=== PATIENT | male | born 1985 | race Caucasian/White ===

== ENCOUNTER 2016-11-13 05:07 | Emergency (ER) | payer SELFPAY ==
[~2016-11-13] VITALS: Ht 170.2 cm; Wt 77.5 kg
[~2016-11-13 05:07] MED LIST: ACET325T33 PO; ERYT1OIN6 LEFT EYE; FAMO-18 PO; LORA-441 PO; ONDA4TAB35 PO
[2016-11-13 05:13] VITALS: Ht 170.2 cm; Wt 77.5 kg
--- NOTE | 2016-11-13 06:42 | ERD ---
ER Documentation Chief Complaint Date/Time DATE: 11/13/16 TIME: 06:38 Chief Complaint diarrhea, vomiting, chest congestion, sob, anxiety HPI 31-year-old male complaining of diarrhea 4 days. Patient reports cough and runny nose. Stated that he felt short of breath this morning. Patient also reports nauseous, but no vomiting. Reports right upper quadrant abdominal pain at times. Denies fever or chills. Denies headache or neck pain. Patient also reports burning sensation during urination. Patient is sexually active, does not use barrier protection. Reports only 1 partner in the last 12 month. ROS All systems reviewed and are negative except as per history of present illness. Medications Home Meds Active Scripts Guaifenesin* (Robitussin*) 100 Mg/5 Ml Syrup, 200 MG PO Q4H Y for COUGH, #120 ML Prov:SABINE ALANIS NP 11/13/16 Sodium Chloride (Saline Nasal Mist) 126 Ml Mist, 2 SPRAY NASAL Q2H Y for NASAL CONGESTION, #1 BOTTLE Prov:SABINE ALANIS NP 11/13/16 Famotidine* (Pepcid*) 20 Mg Tablet, 20 MG PO BID for 4 Days, #30 TAB Prov:DUSTY TRIVEDI PA-C 01/12/16 Acetaminophen* (Tylenol*) 325 Mg Tablet, 2 TAB PO Q8 Y for PAIN AND OR ELEVATED TEMP, #20 TAB Prov:DUSTY TRIVEDI PA-C 01/12/16 Ondansetron Hcl* (Zofran* ODT) 4 mg -ODT Tab.disper, 4 MG PO Q6 Y for NAUSEA AND /OR VOMITING, #5 TAB Prov:SABINE ALANIS NP 12/25/15 Erythromycin (Erythromycin Opth) 3.5 Gm Oint..gm., 1 APPLIC LEFT EYE QID for 7 Days, EA Prov:DUSTY TRIVEDI PA-C 08/29/15 Reported Medications Lorazepam* (Ativan*) 0.5 Mg Tablet, 0.5 MG PO HS 08/09/11 Allergies Allergies: Coded Allergies: No Known Drug Allergies (Verified Allergy, Mild, 01/12/16) PMhx/Soc History of Surgery: No Anesthesia Reaction: No Hx Neurological Disorder: No Hx Respiratory Disorders: No Hx Cardiac Disorders: No Hx Psychiatric Problems: No Hx Miscellaneous Medical Probl: Yes (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 Alert, oriented, in no acute distress Head: Normocephalic, atraumatic. Eyes: PERRL, EOM normal. Sclerae are normal. Conjunctiva not injected. ENT: External canals patent. TM'sclear. Nasal mucosa, oral mucosa and oropharynx are normal. Neck: Supple, nontender. No lymphadenopathy. No nuchal rigidity. Respiration: Normal respiratory effort. Lungs clear to auscultate bilaterally. No wheezes, rales or rhonchi. Cardiovascular: Regular rate and rhythm. No murmurs or extra heart sounds. Abdomen: Abdomen normal to inspection. Nontender. No masses or organomegaly. Bowel sounds normal. Back: Normal to inspection. No midline spine tenderness. No CVA tenderness. Extremities: Extremities normal to inspection, nontender. ROM normal. Neuro: Mental status normal, speech normal. 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 Skin: Normal turgor. No rash or lesions. Psych: Patient appears anxious. Results 24 hrs Laboratory Tests Test 11/13/16 06:42 Bedside Urine pH (LAB) 5.5 Bedside Urine Protein (LAB) Negative Bedside Urine Glucose (UA) Negative Bedside Urine Ketones (LAB) Negative Bedside Urine Blood Trace-lysed Bedside Urine Nitrite (LAB) Negative Bedside Urine Leukocyte Esterase (L Negative Current Medications Medications (Trade) Dose Ordered Sig/Seferino Route PRN Reason Start Time Stop Time Status Last Admin Dose Admin Azithromycin (Zithromax) 1,000 mg ONCE ONCE PO 11/13/16 07:00 11/13/16 07:02 DC 11/13/16 07:18 Ceftriaxone Sodium (Rocephin) 250 mg ONCE ONCE IM 11/13/16 07:00 11/13/16 07:02 DC 11/13/16 07:25 Procedures/MDM Patient is afebrile, in no respiratory distress. Lungs are clear to auscultate. I doubt that patient has pneumonia or bronchitis. Patient does not have any abdominal tenderness on palpation. I doubt acute appendicitis, cholecystitis, bowel obstruction or other acute abdomen. Patient's symptoms is consistent with that of viral syndrome. Patient does not have any active vomiting, is able to maintain by mouth fluid intake. Patient does not show any sign of dehydration. Patient also complaining of dysuria. Urine dip is negative for UTI. Urine sent out for GC/chlamydia testing. Given patient's sexual history, I will treat for GC/chlamydia infection preemptively. Azithromycin 1 g p.o. and Rocephin 250 mg IM given to the patient in the ED. Patient is advised of safe sex practices. Patient appears well, stable for discharge and outpatient management. Medical decision making shared with patient and family. Education provided to patient and family. Patient and family expressed understanding of the plan. Medications on discharge: Saline nasal spray, Robitussin. Follow-up: Primary care provider in 2-3 days or return to ED if worse. SABINE ALANIS NP Nov 13, 2016 06:41
[2016-11-13 06:43] LABS: URINE BLOOD (Dip) POC Trace-lysed (NEGATIVE)
[2016-11-13] MEDS ORDERED: CEFTRIAXONE 250 MG INJ IM ONE (07:00)
[2016-11-13] MEDS ORDERED: AZITHROMYCIN 250 MG TAB PO ONE (07:00)
[2016-11-13] MEDS ORDERED: SODI126M NASAL (07:41)
[2016-11-13] MEDS ORDERED: GUAI-637 PO (07:41)
== END 2016-11-13 07:54 | disposition home or self-care (01) ==
LOC: FTE 05:07
DX: B34.9 Viral infection, unspecified (principal); F17.210 Nicotine dependence, cigarettes, uncomplicated
CPT/HCPCS: 81003; 87591; J0696; 96372

== ENCOUNTER 2017-06-23 16:40 | Emergency (ER) | payer MEDICAID ==
[~2017-06-23] VITALS: Ht 165.1 cm; Wt 79.6 kg
[~2017-06-23 16:40] MED LIST changes: -FAMO-18 PO; +FAMO-96 PO; +GUAI-637 PO; +SODI126M NASAL
[2017-06-23 16:59] VITALS: Ht 165.1 cm; Wt 79.6 kg
[2017-06-23] MEDS ORDERED: ERYT1OIN6 OP (18:47)
--- NOTE | 2017-06-23 18:51 | ERD ---
ER Documentation Chief Complaint Chief Complaint red, watery right eye possible foreign body x3 days HPI This 32-year-old male complains of right eye irritation for the last 3 days. He believes it started after using a router. He is wearing glasses but maybe had some dust or possible would particles in his right eye. He denies any visual field deficits or blurry vision. He denies pain only primarily itching and irritation primarily in the lower lid. ROS All systems reviewed and are negative except as per history of present illness. Medications Home Meds Active Scripts Erythromycin Base (Erythromycin) 1 Gm Oint...g., 1 GM OP QID for 7 Days Prov:MALIHA BURGOS MD 06/23/17 Guaifenesin* (Robitussin*) 100 Mg/5 Ml Syrup, 200 MG PO Q4H Y for COUGH, #120 ML Prov:SABINE ALANIS NP 11/13/16 Sodium Chloride (Saline Nasal Mist) 126 Ml Mist, 2 SPRAY NASAL Q2H Y for NASAL CONGESTION, #1 BOTTLE Prov:SABINE ALANIS NP 11/13/16 Famotidine* (Pepcid*) 20 Mg Tablet, 20 MG PO BID for 4 Days, #30 TAB Prov:DUSTY TRIVEDI PA-C 01/12/16 Acetaminophen* (Tylenol*) 325 Mg Tablet, 2 TAB PO Q8 Y for PAIN AND OR ELEVATED TEMP, #20 TAB Prov:DUSTY TRIVEDI PA-C 01/12/16 Ondansetron Hcl* (Zofran* ODT) 4 mg -ODT Tab.disper, 4 MG PO Q6 Y for NAUSEA AND /OR VOMITING, #5 TAB Prov:SABINE ALANIS NP 12/25/15 Erythromycin (Erythromycin Opth) 3.5 Gm Oint..gm., 1 APPLIC LEFT EYE QID for 7 Days, EA Prov:DUSTY TRIVEDI PA-C 08/29/15 Reported Medications Lorazepam* (Ativan*) 0.5 Mg Tablet, 0.5 MG PO HS 08/09/11 Allergies Allergies: Coded Allergies: No Known Drug Allergies (Verified Allergy, Mild, 01/12/16) PMhx/Soc Medical and Surgical Hx: pt denies Surgical Hx History of Surgery: No Anesthesia Reaction: No Hx Neurological Disorder: No Hx Respiratory Disorders: No Hx Cardiac Disorders: No Hx Psychiatric Problems: No Hx Miscellaneous Medical Probl: Yes (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 Head: Atraumatic Eyes: Some right conjunctival redness which is mild and primary in the lower field. Eyes are PERRLA and extraocular movements intact anterior chambers appear normal. There is no appreciable corneal foreign body. Fluorescein shows no significant uptake and no dendritic lesions or abrasions. Right eye was irrigated copiously. ENT: Normal External Ears, Nose and Mouth. Neck: Full range of motion..~ No meningismus. Resp: Clear to auscultation bilaterally Cardio: Regular rate and rhythm, no murmurs Abd: Soft, non tender, non distended. Normal bowel sounds Skin: No petechiae or rashes Back: No midline or flank tenderness Ext: No cyanosis, or edema Neur: Awake and alert Psych: Normal Mood and Affect Results 24 hrs Current Medications Medications (Trade) Dose Ordered Sig/Seferino Route PRN Reason Start Time Stop Time Status Last Admin Dose Admin Diphtheria/ Tetanus/Acell Pertussis (Adacel) 0.5 ml ONCE ONCE IM* 06/23/17 19:00 06/23/17 19:01 Tetracaine HCl (Tetracaine 0.5% Steri-Unit Татьяна) 1 drop ONCE ONCE RIGHT EYE 06/23/17 19:00 06/23/17 19:01 06/23/17 18:38 Fluorescein Sodium (Gliws-N-Wpqdi) 1 strip ONCE ONCE RIGHT EYE 06/23/17 19:00 06/23/17 19:01 06/23/17 18:38 Irrigating Solution (Eye Wash) 1 applic ONCE ONCE RIGHT EYE 06/23/17 19:00 06/23/17 19:01 06/23/17 18:38 Procedures/MDM Resents with some conjunctival irritation and lower lid irritation after possible exposure to dust or wood particles. There is no appreciable foreign body. There is no evidence of periorbital or orbital cellulitis. There is no appreciated foreign body. May have conjunctivitis weather, core irritant or possibly viral. Patient will be treated with erythromycin ophthalmic ointment and ophthalmology follow-up this week for persistent symptoms. She should otherwise return to the ER for fevers facial redness or swelling or new or worsening symptoms or visual field deficits or visual changes. Patient is given a Tdap tetanus booster Departure Diagnosis: Primary Impression: Foreign body, eye Encounter type: initial encounter Laterality: right Qualified Code: T15.91XA - Foreign body of right eye, initial encounter Additional Impression: Conjunctivitis Conjunctivitis type: unspecified Laterality: right Qualified Code: H10.9 - Conjunctivitis of right eye, unspecified conjunctivitis type Condition: Stable Patient Instructions: Conjunctivitis Caused by Irritation, Conjunctival Foreign Body, Resolved Referrals: [facility] Hours: Fri - Fri 9:00 AM - 5:00 PM Additional Instructions: Foreign body seen. See yarn bleaching machine operator for further evaluation for symptoms later this week. May be irritation or mild infection. MALIHA BURGOS MD Jun 23, 2017 18:51
[2017-06-23] MEDS ORDERED: OPHTHALMIC IRRIG SOLUTION 120 ML RIGHT EYE ONE (19:00)
[2017-06-23] MEDS ORDERED: FLUORESCEIN STRIP RIGHT EYE ONE (19:00)
[2017-06-23] MEDS ORDERED: DIPHTH/TET/ACEL PERTUSS (ADULT) 0.5 ML VIAL IM* ONE (19:00)
[2017-06-23] MEDS ORDERED: TETRACAINE 0.5% 4 ML OPH RIGHT EYE ONE (19:00)
== END 2017-06-23 19:13 | disposition home or self-care (01) ==
LOC: FTE 16:40
DX: T15.91XA Foreign body on external eye, part unspecified, right eye, initial encounter (principal); H10.9 Unspecified conjunctivitis; F17.210 Nicotine dependence, cigarettes, uncomplicated; X58.XXXA Exposure to other specified factors, initial encounter; Y92.9 Unspecified place or not applicable; Z23 Encounter for immunization
CPT/HCPCS: 90471; 90715; Z7502; Z7610